=== PATIENT | female | born 1965 | race Caucasian/White ===

== ENCOUNTER 2021-04-22 07:16 | Emergency (ER) | payer BC ==
[2021-04-22] MEDS ORDERED: Zofran 4 MG/2 ML VIAL IV STA (07:36)
[2021-04-22] MEDS ORDERED: Sodium Chloride 0.9% 1000 ML 1,000 ML IV STA ×2 (07:36→08:38)
[2021-04-22] MEDS ORDERED: Sodium Chloride 0.9% 1000 ML 1,000 ML ONE ×2 (07:47→08:58)
[2021-04-22] MEDS ORDERED: Zofran 4 MG/2 ML VIAL ONE (07:47)
[2021-04-22 07:55] LABS: Absolute Neutrophil Ct (ANC) 3.82 (1.4-6.9); BASOPHIL % 0.2 % (0.0-0.4); Basophil (Absolute #) 0.01 (0-0.4); Eosinophil (Absolute #) 0 (0-0.5); Hematocrit 38.2 % (35-47); Lymphocytes % 18.9 % (24.0-44.0); Mean Cell Volume 83.4 fl (78-100); Mean Corpuscular Hemoglobin 28.4 pg (26-32); Mean Platelet Volume 9.7 fl (7.5-11.0); Monocyte (Absolute #) 0.47 (0.0-1.3); Monocytes % 8.9 % (0.0-12.0); Platelet Count 246 K/mm3 (150-450); Red Blood Count 4.58 M/mm3 (4.1-5.4); Red Cell Distribution Width 14.9 % (11.5-14.0); White Blood Count 5.3 K/mm3 (4.0-10.5)
[2021-04-22 08:05] LABS: ALBUMIN 4.2 g/dL (3.5-5.0); ALKALINE PHOSPHATASE 88 U/L (38-126); ANION GAP 16.3 MEQ/L (5-15); BLOOD UREA NITROGEN 12 mg/dL (7-17); CHLORIDE 98 mmol/L (98-107); Calcium 9.2 mg/dL (8.4-10.2); Carbon Dioxide 27 mmol/L (22-30); Creatinine 1 0.82 mg/dL (0.52-1.04); EST GLOMERULAR FILTRATION RATE > 60.0 ML/MIN; Glucose 107 mg/dL (74-106); Potassium 4.2 mmol/L (3.5-5.1); SGOT/AST 45 U/L (14-36); SGPT/ALT 35 U/L (0-35); SODIUM 137 mmol/L (137-145); Total Protein 7.6 g/dL (6.3-8.2)
--- NOTE | 2021-04-22 08:12 | ERPHSYRPT ---
- History of Present Illness Source: patient Exam Limitations: no limitations Patient Subjective Stated Complaint: Pt c/o of N&V, diarrhea, body fatigue, aches and pains, for the past week and a half Triage Nursing Assessment: Pt was brought to the ER by her daughter, vitals wnl, nauseaous, denies pain, states diarrhea ended yesterday, been sick for 1.5 weeks, cough, denies SOB, pulses normal, skin n/w/d Physician History: 55 yo wf w N/V/D/cough/coryza/fever/myalgias x 10 days. Pt is unvaccinated vs CV19. Pt denies dysuria/hematuria/chest pain/melena/hematochezia. Timing/Duration: other (10 days) Fever Severity: mild Associated Symptoms: cough, muscle aches, nausea/vomiting, rhinorrhea, weakness, No abdominal pain, No chest pain, No confusion, No diaphoresis, No headache, No rash, No shortness of breath, No sore throat, No stiff neck, No syncope Allergies/Adverse Reactions: No Known Drug Allergies Allergy (Verified 04/22/21 07:38) Travel Risk - International Travel Have you traveled outside of the country in past 3 weeks: No - Coronavirus Screening Are you exhibiting any of the following symptoms?: No Symptoms: Vomiting/Diarrhea, Headaches/Body Aches/Fatigue Close contact with a COVID-19 positive Pt in past 14-21 Days: No - Vaccine Status Have you recieved a Covid-19 vaccination: No - Review of Systems Constitutional: Fever, Chills, Fatigue, Lethargy, Malaise, Weakness Eyes: No Symptoms Ears, Nose, & Throat: No Symptoms Respiratory: No Symptoms, Cough, Dyspnea Cardiac: No Symptoms Abdominal/Gastrointestinal: No Symptoms, Nausea, Vomiting, Diarrhea Genitourinary Symptoms: No Symptoms Musculoskeletal: No Symptoms, Myalgias Skin: No Symptoms Neurological: No Symptoms Psychological: No Symptoms Endocrine: No Symptoms Hematologic/Lymphatic: No Symptoms Immunological/Allergic: No Symptoms - Past Medical History Pertinent Past Medical History: No - Past Surgical History Past Surgical History: Yes Female Surgical History: Tubal Ligation - Social History Smoking Status: Never smoker Exposure to second hand smoke: No Drug Use: none Patient Lives Alone: No Significant Family History: no pertinent family hx - Nursing Vital Signs Nursing Vital Signs: Initial Vital Signs Temperature 98.2 F 04/22/21 07:29 Pulse Rate 97 H 04/22/21 07:29 Respiratory Rate 22 04/22/21 07:29 Blood Pressure 117/83 04/22/21 07:29 O2 Sat by Pulse Oximetry 96 04/22/21 07:29 Pain Scale Pain Intensity 0 WNL - Physical Exam General Appearance: no apparent distress, obese Eye Exam: PERRL/EOMI, eyes nml inspection ENT Exam: normal ENT inspection, no apparent trauma, hearing grossly normal, TMs normal, pharynx normal Neck Exam: normal inspection, non-tender, supple, full range of motion, trachea midline Respiratory Exam: no respiratory distress, crackles/rales (B bases) Cardiovascular/Chest Exam: normal heart sounds, regular rate/rhythm, normal peripheral pulses, No murmur Gastrointestinal/Abdominal Exam: soft, non tender, no distention Extremity Exam: non-tender, normal range of motion, normal inspection, normal capillary refill, no calf tenderness, no pedal edema Neurologic Exam: alert, oriented x 3, cooperative, director new product II-XII nml as tested, normal mood/affect, nml cerebellar function, sensation nml Skin Exam: normal color, warm, dry, No rash Lymphatic: No adenopathy SpO2 Interpretation: normal SpO2: 96 O2 Delivery: Room Air - Course Nursing assessment & vital signs reviewed: Yes - Radiology Exams Chest X-ray Interpretation: Interpreted by me (Patchy RLL infiltrate) Ordered Tests: Active Orders 24 hr Category Date Time Status IV Insertion STAT Care 04/22/21 07:36 Completed CHEST 1 VIEW (PORTABLE) Stat Exams 04/22/21 07:36 Completed CBC W DIFF Stat Lab 04/22/21 07:30 Completed CMP Stat Lab 04/22/21 07:30 Completed Lactic Acid Stat Lab 04/22/21 08:10 Completed TROPONIN Stat Lab 04/22/21 07:30 Completed UA W/RFX UR CULTURE Stat Lab 04/22/21 09:10 Completed Medication Summary Discontinued Medications Generic Name Dose Route Start Last Admin Trade Name Freq PRN Reason Stop Dose Admin Dexamethasone Sodium Phosphate 10 mg 04/22/21 09:11 04/22/21 09:19 Dexamethasone Sod Phosphate 10 Mg/Ml IV 04/22/21 09:12 10 mg STAT ONE Administration Dexamethasone Sodium Phosphate Confirm 04/22/21 09:16 Dexamethasone Sod Phosphate 10 Mg/Ml Administered 04/22/21 09:17 Dose 10 mg .ROUTE .STK-MED ONE Famotidine 40 mg 04/22/21 09:21 04/22/21 09:29 Famotidine 20 Mg/1 Vial IV 04/22/21 09:22 40 mg STAT ONE Administration Famotidine Confirm 04/22/21 09:27 Famotidine 20 Mg/1 Vial Administered 04/22/21 09:28 Dose 40 mg IV .STK-MED ONE Sodium Chloride 1,000 mls @ 999 mls/hr 04/22/21 07:36 04/22/21 08:54 Sodium Chloride 0.9% 1000 Ml IV 04/22/21 08:36 Infused .Q1H1M STA Infusion Sodium Chloride Confirm 04/22/21 07:47 Sodium Chloride 0.9% 1000 Ml Administered 04/22/21 07:48 Dose 1,000 mls @ ud .ROUTE .STK-MED ONE Sodium Chloride 1,000 mls @ 999 mls/hr 04/22/21 08:38 04/22/21 10:33 Sodium Chloride 0.9% 1000 Ml IV 04/22/21 09:38 Infused .Q1H1M STA Infusion Sodium Chloride Confirm 04/22/21 08:58 Sodium Chloride 0.9% 1000 Ml Administered 04/22/21 08:59 Dose 1,000 mls @ ud .ROUTE .STK-MED ONE Ondansetron HCl 4 mg 04/22/21 07:36 04/22/21 07:50 Ondansetron Hcl 4 Mg/2 Ml Vial IV 04/22/21 07:37 4 mg STAT STA Administration Ondansetron HCl Confirm 04/22/21 07:47 Ondansetron Hcl 4 Mg/2 Ml Vial Administered 04/22/21 07:48 Dose 4 mg .ROUTE .STK-MED ONE Lab/Rad Data: Laboratory Result Diagrams 04/22/21 07:30 04/22/21 07:30 Laboratory Results 04/22/21 04/22/21 04/22/21 Range/Units 09:10 08:10 07:45 WBC (4.0-10.5) K/mm3 RBC (4.1-5.4) M/mm3 Hgb (12.0-16.0) gm/dl Hct (35-47) % MCV (78-100) fl MCH (26-32) pg MCHC (32-36) g/dl RDW (11.5-14.0) % Plt Count (150-450) K/mm3 MPV (7.5-11.0) fl Gran % (36.0-66.0) % Eos # (Auto) (0-0.5) Absolute Lymphs (auto) (1.0-4.6) Absolute Monos (auto) (0.0-1.3) Lymphocytes % (24.0-44.0) % Monocytes % (0.0-12.0) % Eosinophils % (0.00-5.0) % Basophils % (0.0-0.4) % Absolute Granulocytes (1.4-6.9) Basophils # (0-0.4) Sodium (137-145) mmol/L Potassium (3.5-5.1) mmol/L Chloride (98-107) mmol/L Carbon Dioxide (22-30) mmol/L Anion Gap (5-15) MEQ/L BUN (7-17) mg/dL Creatinine (0.52-1.04) mg/dL Estimated GFR ML/MIN Glucose (74-106) mg/dL Lactic Acid 1.3 (0.4-2.0) Calcium (8.4-10.2) mg/dL Total Bilirubin (0.2-1.3) mg/dL AST (14-36) U/L ALT (0-35) U/L Alkaline Phosphatase (38-126) U/L Troponin I (0.000-0.034) ng/mL Serum Total Protein (6.3-8.2) g/dL Albumin (3.5-5.0) g/dL Urine Color YELLOW (YELLOW) Urine Appearance SLIGHTLY CLOUDY (CLEAR) Urine pH 6.0 (5-6) Ur Specific Gantt 1.006 (1.005-1.025) Urine Protein 30 (Negative) Urine Ketones NEGATIVE (NEGATIVE) Urine Blood NEGATIVE (0-5) Edinson/ul Urine Nitrite NEGATIVE (NEGATIVE) Urine Bilirubin NEGATIVE (NEGATIVE) Urine Urobilinogen NEGATIVE (0-1) mg/dL Ur Leukocyte Esterase NEGATIVE (NEGATIVE) Urine WBC (Auto) 3-5 (0-5) /HPF Urine RBC (Auto) NONE (0-2) /HPF U Epithel Cells (Auto) RARE (FEW) /HPF Urine Bacteria (Auto) RARE (NEGATIVE) /HPF Urine Culture Reflexed NO (NO) Urine Glucose NEGATIVE (NEGATIVE) mg/dL Influenza Type A Ag NEGATIVE (NEGATIVE) Influenza Type B Ag NEGATIVE (NEGATIVE) RSV (PCR) NEGATIVE (Negative) SARS-CoV-2 (PCR) POSITIVE A (NEGATIVE) 04/22/21 04/22/21 04/22/21 Range/Units 07:30 07:30 07:30 WBC 5.3 (4.0-10.5) K/mm3 RBC 4.58 (4.1-5.4) M/mm3 Hgb 13.0 (12.0-16.0) gm/dl Hct 38.2 (35-47) % MCV 83.4 (78-100) fl MCH 28.4 (26-32) pg MCHC 34.0 (32-36) g/dl RDW 14.9 H (11.5-14.0) % Plt Count 246 (150-450) K/mm3 MPV 9.7 (7.5-11.0) fl Gran % 72.0 H (36.0-66.0) % Eos # (Auto) 0 (0-0.5) Absolute Lymphs (auto) 1.00 (1.0-4.6) Absolute Monos (auto) 0.47 (0.0-1.3) Lymphocytes % 18.9 L (24.0-44.0) % Monocytes % 8.9 (0.0-12.0) % Eosinophils % 0.0 (0.00-5.0) % Basophils % 0.2 (0.0-0.4) % Absolute Granulocytes 3.82 (1.4-6.9) Basophils # 0.01 (0-0.4) Sodium 137 (137-145) mmol/L Potassium 4.2 (3.5-5.1) mmol/L Chloride 98 (98-107) mmol/L Carbon Dioxide 27 (22-30) mmol/L Anion Gap 16.3 H (5-15) MEQ/L BUN 12 (7-17) mg/dL Creatinine 0.82 (0.52-1.04) mg/dL Estimated GFR > 60.0 ML/MIN Glucose 107 H (74-106) mg/dL Lactic Acid (0.4-2.0) Calcium 9.2 (8.4-10.2) mg/dL Total Bilirubin 0.60 (0.2-1.3) mg/dL AST 45 H (14-36) U/L ALT 35 (0-35) U/L Alkaline Phosphatase 88 (38-126) U/L Troponin I < 0.012 (0.000-0.034) ng/mL Serum Total Protein 7.6 (6.3-8.2) g/dL Albumin 4.2 (3.5-5.0) g/dL Urine Color (YELLOW) Urine Appearance (CLEAR) Urine pH (5-6) Ur Specific Gantt (1.005-1.025) Urine Protein (Negative) Urine Ketones (NEGATIVE) Urine Blood (0-5) Edinson/ul Urine Nitrite (NEGATIVE) Urine Bilirubin (NEGATIVE) Urine Urobilinogen (0-1) mg/dL Ur Leukocyte Esterase (NEGATIVE) Urine WBC (Auto) (0-5) /HPF Urine RBC (Auto) (0-2) /HPF U Epithel Cells (Auto) (FEW) /HPF Urine Bacteria (Auto) (NEGATIVE) /HPF Urine Culture Reflexed (NO) Urine Glucose (NEGATIVE) mg/dL Influenza Type A Ag (NEGATIVE) Influenza Type B Ag (NEGATIVE) RSV (PCR) (Negative) SARS-CoV-2 (PCR) (NEGATIVE) - Progress Progress Note: 04/22/21 09:16 1L NS x2 10mg IV Decadron 04/22/21 09:22 Pepcid 40mg IV Counseled pt/family regarding: lab results, diagnosis, need for follow-up, rad results - Departure Departure Disposition: Home Clinical Impression: COVID-19 Condition: Stable Critical Care Time: No Referrals: Veronica Brady NP [Primary Care Provider] - Follow up/PCP as directed Instructions: Coronavirus Disease 2019 (COVID-19) (DC) Additional Instructions: Fluids Get a pulse oximeter and monitor oxygen saturation 2-3 times a day. Return to ER for persistent oxygen saturation less than 91% VitaminD 10,000units a day [id number] a day [id number] a day Follow up with your family MD De Paz for nausea-vomiting Prescriptions: Ondansetron HCl [Zofran] 4 mg PO Q4-6HPRN PRN #10 tablet PRN Reason: Nausea/Vomiting
[2021-04-22 08:31] LABS: INFLUENZA A NEGATIVE (NEGATIVE); INFLUENZA B NEGATIVE (NEGATIVE); RESPIRATORY SYNCTIAL VIRUS NEGATIVE (Negative)
[2021-04-22 08:37] LABS: SARS-CoV-2 Xpert Express POSITIVE (NEGATIVE)
[2021-04-22] MEDS ORDERED: DECADRON 10MG INJ. IV ONE (09:11)
--- NOTE | 2021-04-22 09:14 | XRAY ---
Indication: Cough. Suspect Covid 19. Comparison: March 24, 2016. Portable chest demonstrates new mild bilateral mid to lower lung patchy interstitial alveolar opacities without consolidation/large effusion. Remaining heart and bony thorax normal.
[2021-04-22] MEDS ORDERED: DECADRON 10MG INJ. ONE (09:16)
[2021-04-22 09:20] LABS: Appearance SLIGHTLY CLOUDY (CLEAR); Bacteria RARE /HPF (NEGATIVE); Bilirubin NEGATIVE (NEGATIVE); Blood NEGATIVE Ery/ul (0-5); Epithelial Cells RARE /HPF (FEW); Glucose NEGATIVE (NEGATIVE); Ketones NEGATIVE (NEGATIVE); Leukocyte Esterase NEGATIVE (NEGATIVE); Nitrite NEGATIVE (NEGATIVE); Protein,Urine Dip 30 (Negative); Specific Gravity 1.006 (1.005-1.025); Urobilinogen NEGATIVE mg/dL (0-1)
[2021-04-22] MEDS ORDERED: Pepcid 20 MG VIAL IV ONE ×2 (09:21→09:27)
[2021-04-22 10:18] VITALS: BP 141/93; PULSE 83; O2SAT 95
== END 2021-04-22 10:33 | disposition home or self-care (01) ==
LOC: ED 07:16
DX: U07.1 COVID-19 (principal)
CPT/HCPCS: 0241U; 36000; 36415; 71045; 80053; 81001; 83605; 84484; 85025; 96360; 96361; 96374; 96375; 99284; J1100; J2405